=== PATIENT | male | born 1965 | race Caucasian/White ===

== ENCOUNTER 2017-07-19 17:50 | Emergency (ER) | payer OTHER ==
[~2017-07-19] VITALS: Ht 167.6 cm; Wt 102.0 kg
[2017-07-19 17:54] VITALS: Ht 167.6 cm; Wt 102.0 kg
[2017-07-19] MEDS ORDERED: ALPR0.5T PO (18:41)
--- NOTE | 2017-07-19 18:44 | ERD ---
ER Documentation Chief Complaint Date/Time DATE: 07/19/17 TIME: 18:42 Chief Complaint Complains of an anxiety reaction HPI This is a 52-year-old man who is complaining under a lot of stress at work. He states that he is having a feeling that he wants to just run down the street or run away because he is getting overloaded. 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 The patient states he is not having any chest pain shortness of breath does feel some tremors in his hands at times when he feels like he wants to run. Currently he is asymptomatic. ROS All systems reviewed and are negative except as per history of present illness. Medications Home Meds Active Scripts Alprazolam* (Xanax*) 0.5 Mg Tab, 0.5 MG PO Q8H Y for ANXIETY, #14 TAB Prov:CHRISTIANOJAG SWAN DO 07/19/17 Allergies Allergies: Coded Allergies: No Known Allergy (Unverified , 07/19/17) FmHx Family History: No coronary disease Physical Exam Vitals Vital Signs Date Time Temp Pulse Resp B/P Pulse Ox O2 Delivery O2 Flow Rate FiO2 07/19/17 17:54 97.2 72 20 136/77 97 Physical Exam Const: Well-developed, well-nourished Head: Atraumatic, normocephalic Eyes: Normal Conjunctiva, PERRLA, EOMI, normal sclera, no nystagmus ENT: Normal External Ears, Nose and Mouth, moist mucus membranes. Neck: Full range of motion. No meningismus, no lymphadenopathy. Resp: Clear to auscultation bilaterally, no wheezing, rhonchi, rales Cardio: Regular rate and rhythm, no murmurs, S1 S2 present Abd: Soft, non tender x 4, non distended. Normal bowel sounds, no guarding or rebound, no pulsitile abdominal masses or bruits Skin: No petechiae or rashes, no ecchymosis , no maculopapular rash Back: No midline or flank tenderness Ext: No cyanosis, or edema, FROM x 4, normal inspection, neurovascularly intact x 4 Neur: Awake and alert, STR 5/5 x 4, sensation intact x 4, no focal findings, cerebellum intact Psych: Normal Mood and Affect Procedures/MDM Discussed some lifestyle changes to help with anxiety reaction. Will provide him with some Xanax in case he has breakthrough. Departure Diagnosis: Primary Impression: Anxiety Condition: Stable Patient Instructions: Anxiety Reaction JAG FINLEY DO Jul 19, 2017 18:44
== END 2017-07-19 19:25 | disposition home or self-care (01) ==
LOC: FTE 17:50
DX: F41.1 Generalized anxiety disorder (principal)
CPT/HCPCS: 99283